=== PATIENT | male | born 1940 | race Caucasian/White ===

== ENCOUNTER 2020-07-12 15:58 | Observation (INO) ==
[2020-07-12 17:10] LABS: Basophils % 0.2 %; Eosinophils # 0.2 K/mcL (0.0-0.6); Eosinophils % 1.4 %; Hematocrit 39.9 % (37.5-50.1); Hemoglobin 11.8 g/dL (12.9-16.9); Immature Granulocytes % 0.3 % (0-4); Lymphocytes # 3.2 K/mcL (0.6-4.6); Lymphocytes % 25.5 %; Mean Corpuscular HGB Conc 29.6 g/dL (31.6-35.5); Mean Corpuscular Hemoglobin 26.3 pg (28.0-33.3); Mean Corpuscular Volume 89.1 fL (83.0-100.0); Mean Platelet Volume 10.2 fL (9.4-12.4); Monocytes % 7.6 %; Neutrophils # 8.1 K/mcL (1.6-8.9); Platelet Count 590 K/mcL (140-400); Red Blood Count 4.48 M/mcL (4.19-5.50); Red Cell Distribution Width 17.5 % (11.5-14.5); White Blood Count 12.5 K/mcL (4.3-11.1)
[2020-07-12 17:16] LABS: INR 1.1; Prothrombin Time 12.7 Seconds (9.4-12.1)
[2020-07-12 17:32] LABS: BUN/Creatinine Ratio 22 (6-26); Blood Urea Nitrogen 18 mg/dL (8-23); Calcium 10.1 mg/dL (8.6-10.3); Carbon Dioxide 28 mEq/L (23-29); Chloride 102 mEq/L (98-107); Glucose 147 mg/dL (70-105); Osmolality,Calculated 289 (280-300); Potassium 4.1 mEq/L (3.5-5.1); Sodium 137 mEq/L (136-145); Troponin I < 0.03 ng/mL (< 0.04); eGFR For African Americans > 60 (> 60); eGFR For Non-African Americans > 60 (> 60)
[2020-07-12 18:51] LABS: Bilirubin,Urine Negative (Negative); Blood,Urine Negative (Negative); Clarity,Urine Clear (Clear); Color,Urine Colorless (Yellow); Glucose,Urine (UA) Normal (Normal); Ketones,Urine Negative (Negative); Leukocyte Esterase,Urine Negative (Negative); Nitrite,Urine Negative (Negative); PH,Urine 6.5 pH Units (5.0-8.0); Protein,Urine Negative (Neg-Trace); Specific Gravity,Urine 1.005 (1.010-1.025); Urobilinogen,Urine Normal (Normal)
[2020-07-12] MEDS ORDERED: Aspirin 325 MG TABLET PO ONE (18:54)
[2020-07-12] MEDS ORDERED: Perflutren Lipid Microsphere 1.3 ML in 0.9 % Sodium Chloride 8.7 ML IVP PRN (19:48)
[2020-07-12] MEDS ORDERED: D5% in Water 1,000 ML IVC PRN (20:46)
[2020-07-12] MEDS ORDERED: Dextrose Gel 15 GM/37.5 ML TUBE PO PRN ×2 (20:46)
[2020-07-12] MEDS ORDERED: *HR* Dextrose 50 % in Water (Vial) 50 ML VIAL IVP PRN (20:46)
[2020-07-12] MEDS ORDERED: Ondansetron 4 MG/2 ML VIAL IVP PRN (20:47)
[2020-07-12] MEDS ORDERED: Naloxone 0.4 MG/ML INJ IVP PRN (20:47)
[2020-07-12] MEDS ORDERED: Acetaminophen 325 MG TABLET PO PRN (20:47)
[2020-07-12] MEDS ORDERED: Insulin LISPRO 300 UNITS/3 ML VIAL SUBQ SCH (21:00)
[2020-07-12 21:21] LABS: Magnesium 1.5 mg/dL (1.6-2.6)
[2020-07-12] MEDS ORDERED: Magnesium Oxide 400 MG TABLET PO ONE (21:24)
[2020-07-12 21:35] LABS: Thyroid Stimulating Hormone 1.548 mcIU/mL (0.340-5.600)
[2020-07-12] MEDS: *HR* Heparin 5,000 UNIT/ML VIAL SQ SCH (22:02)
[2020-07-13] MEDS: *HR* Heparin 5,000 UNIT/ML VIAL SQ SCH (05:50)
[2020-07-13 06:00] LABS: Hematocrit 37.1 % (37.5-50.1); Mean Corpuscular HGB Conc 29.6 g/dL (31.6-35.5); Mean Corpuscular Hemoglobin 26.4 pg (28.0-33.3); Mean Platelet Volume 10.3 fL (9.4-12.4); Platelet Count 536 K/mcL (140-400); Red Blood Count 4.17 M/mcL (4.19-5.50); Red Cell Distribution Width 17.5 % (11.5-14.5); White Blood Count 9.9 K/mcL (4.3-11.1)
[2020-07-13 06:07] LABS: INR 1.1; Prothrombin Time 13.2 Seconds (9.4-12.1)
[2020-07-13 06:10] LABS: Activated Partial Thrombo Time 27.9 Seconds (26.0-36.0)
[2020-07-13 06:23] LABS: % Iron Saturation 10 % (20-55); Iron 42 mcg/dL (65-175); Transferrin 298 mg/dL (203-362)
[2020-07-13 06:24] LABS: BUN/Creatinine Ratio 20 (6-26); Blood Urea Nitrogen 17 mg/dL (8-23); Calcium 9.4 mg/dL (8.6-10.3); Carbon Dioxide 26 mEq/L (23-29); Chloride 107 mEq/L (98-107); Chol/HDL Ratio 2.4 (0-4.9); Cholesterol 99 mg/dL (< 200); Glucose 135 mg/dL (70-105); HDL Cholesterol 41 mg/dL (40-59); LDL Cholesterol,Calculated 39 mg/dL (< 100); Osmolality,Calculated 298 (280-300); Potassium 4.1 mEq/L (3.5-5.1); Sodium 142 mEq/L (136-145); Triglycerides 97 mg/dL (< 150); Troponin I < 0.03 ng/mL (< 0.04); eGFR For African Americans > 60 (> 60); eGFR For Non-African Americans > 60 (> 60)
[2020-07-13 06:36] LABS: Ferritin 11 ng/mL (20-250)
[2020-07-13 07:33] LABS: Estimated Average Glucose 171 mg/dl; Hemoglobin A1C 7.6 %
[2020-07-13] MEDS: Insulin LISPRO 300 UNITS/3 ML VIAL SUBQ SCH ×2 (07:50→12:00)
[2020-07-13] MEDS ORDERED: Aspirin Enteric Coated 81 MG Tablet PO SCH (09:00)
[2020-07-13] MEDS ORDERED: Multivit/Ca/Min/Fe/FA 1 TAB TABLET PO SCH (09:00)
[2020-07-13 10:09] LABS: Folate > 22.3 ng/mL (3.0-16.0); Vitamin B12 288 pg/mL (250-1100); Vitamin D 25 Hydroxy 35 ng/mL (30-80)
[2020-07-13 11:12] VITALS: BP 150/68
== END 2020-07-13 15:12 | disposition home or self-care (01) ==
LOC: EMEROOARM 15:58 → 3BNU 15:58 → SUATTDRO 20:32 → 3BNU 20:48
PROVIDERS: ADMIT Student in an Organized Health Care Education/Training Program; ATTEND Nurse Practitioner